=== PATIENT | female | born 1950 | race Caucasian/White ===

== ENCOUNTER 2018-02-06 09:46 | Day surgery (SDC) | payer OTHER ==
[~2018-02-06] VITALS: Ht 167.6 cm; Wt 87.1 kg
[~2018-02-06 09:46] MED LIST: BIOTIN1000 MICRO PO; BREO ELLIPTA 21 EACH IH; COZAAR100 MG PO; DOXEPIN HCL75 MG PO; MULTI-DAY VITA1 EACH PO; NEURONTIN600 MG PO; OMEPRAZOLE40 M1 PO; PERCOCET 5/31 TABLET PO; PRAVASTATIN SOD40 MG PO; SINGULAIR10 MG PO; ST. JOSEPH ASPI81 MG PO; SYMBICORT60 INHALAT IH; ZOLOFT50 MG PO
== END 2018-02-06 10:50 | disposition home or self-care (01) ==
LOC: PAIN 09:46 → SDC 10:15 → PAIN 10:15
DX: M47.816 Spondylosis without myelopathy or radiculopathy, lumbar region (principal); M85.80 Other specified disorders of bone density and structure, unspecified site; M51.36 Other intervertebral disc degeneration, lumbar region; M41.9 Scoliosis, unspecified; J45.909 Unspecified asthma, uncomplicated; K21.9 Gastro-esophageal reflux disease without esophagitis; I10 Essential (primary) hypertension; E78.5 Hyperlipidemia, unspecified; F32.9 Major depressive disorder, single episode, unspecified; F41.9 Anxiety disorder, unspecified; I65.29 Occlusion and stenosis of unspecified carotid artery; G47.33 Obstructive sleep apnea (adult) (pediatric); E66.9 Obesity, unspecified; Z68.32 Body mass index [BMI] 32.0-32.9, adult; Z79.82 Long term (current) use of aspirin; Z88.5 Allergy status to narcotic agent; Z88.8 Allergy status to other drugs, medicaments and biological substances; Z91.040 Latex allergy status
CPT/HCPCS: J1030; J2250; S0020

== ENCOUNTER → 2018-02-13 | Day surgery (SDC) | payer OTHER ==
[~2018-02-13] VITALS: Ht 165.1 cm; Wt 89.8 kg
== END | disposition home or self-care (01) ==
LOC: PAIN 10:24 → SDC 11:00
DX: M47.816 Spondylosis without myelopathy or radiculopathy, lumbar region (principal); M85.80 Other specified disorders of bone density and structure, unspecified site; M51.36 Other intervertebral disc degeneration, lumbar region; M41.9 Scoliosis, unspecified; Z79.82 Long term (current) use of aspirin
CPT/HCPCS: J1030; J2250; S0020

== ENCOUNTER 2018-03-28 11:55 | Day surgery (SDC) | payer OTHER ==
[~2018-03-28] VITALS: Ht 165.1 cm; Wt 89.4 kg
[2018-03-31] MEDS ORDERED: PROBIOTIC1 EAC5 PO (15:59)
== END 2018-03-28 13:35 | disposition home or self-care (01) ==
LOC: PAIN 11:55 → SDC 12:30 → PAIN 12:30
DX: M47.816 Spondylosis without myelopathy or radiculopathy, lumbar region (principal); M51.36 Other intervertebral disc degeneration, lumbar region; I10 Essential (primary) hypertension; E78.5 Hyperlipidemia, unspecified; K21.9 Gastro-esophageal reflux disease without esophagitis; J45.909 Unspecified asthma, uncomplicated; Z79.82 Long term (current) use of aspirin; Z91.040 Latex allergy status
CPT/HCPCS: J1030; J2250; S0020

== ENCOUNTER 2018-04-04 08:23 | Day surgery (SDC) | payer OTHER ==
[~2018-04-04] VITALS: Ht 167.6 cm; Wt 89.4 kg
[~2018-04-04 08:23] MED LIST changes: +PROBIOTIC1 EAC5 PO
== END 2018-04-04 10:10 | disposition home or self-care (01) ==
LOC: PAIN 08:23 → SDC 11:30 → PAIN 11:30
PROC: BR161ZZ Fluoroscopy of Lumbar Facet Joint(s) using Low Osmolar Contrast (ICD-10-PCS; principal; 2018-04-04)
PROC: 3E0T3TZ Introduction of Destructive Agent into Peripheral Nerves and Plexi, Percutaneous Approach (ICD-10-PCS; principal; 2018-04-04)
DX: M47.816 Spondylosis without myelopathy or radiculopathy, lumbar region (principal); J45.909 Unspecified asthma, uncomplicated; Z79.82 Long term (current) use of aspirin; Z88.5 Allergy status to narcotic agent
CPT/HCPCS: J1030; J2250; S0020